=== PATIENT | female | born 1995 | race Caucasian/White ===

== ENCOUNTER 2017-05-19 14:46 | Outpatient (CLI) | payer OTHER | END 2017-05-19 16:57 | disposition home or self-care (01) | LOC: OBT 14:46 → L-D 14:48 → OBT 16:57 | DX: O62.9 Abnormality of forces of labor, unspecified (principal); Z3A.37 37 weeks gestation of pregnancy | CPT/HCPCS: 76818 ==

== ENCOUNTER 2017-05-29 15:03 | Inpatient (IN) | payer OTHER ==
[2017-05-29] MEDS ORDERED: METHYLERGONOVINE 0.2 MG INJ IM (16:00)
[2017-05-29] MEDS ORDERED: CARBOPROST 250 MCG INJ IM (16:00)
[2017-05-29] MEDS ORDERED: OXYTOCIN 30 UNITS/LR 500 ML IV ×2 (16:00)
[2017-05-29] MEDS: AMPICILLIN 2 GM/NS (PMX) 100 ML IV (16:00)
[2017-05-29] MEDS ORDERED: LIDOCAINE 1% (MPF) 30 ML INJ INJ (16:00)
[2017-05-29] MEDS ORDERED: BUTORPHANOL 1 MG INJ IV (16:00)
[2017-05-29] MEDS ORDERED: BUTORPHANOL 2 MG INJ IV (16:00)
[2017-05-29] MEDS ORDERED: IBUPROFEN 600 MG TAB PO (16:00)
[2017-05-29] MEDS ORDERED: MISOPROSTOL 200 MCG TAB PR (16:00)
[2017-05-29] MEDS: LACTATED RINGER'S 1,000 ML IV ×2 (16:35→19:24)
[2017-05-29] MEDS: MISOPROSTOL 25 MCG CAPSULE PO ×3 (16:35→20:44)
[2017-05-29 16:49] LABS: ADD MAN DIFF? NO
[2017-05-29 16:58] LABS: BASOPHILS % 0.4 % (0.0-2.0); EOSINOPHILS # 0.1 10^3/ul (0.0-0.5); EOSINOPHILS % 0.6 % (0.0-7.0); HEMATOCRIT 34.5 % (37.0-47.0); HEMOGLOBIN 11.3 g/dl (12.0-16.0); LYMPHOCYTES # 1.7 10^3/ul (0.8-2.9); LYMPHOCYTES % 17.4 % (15.0-51.0); MEAN CORPUSCULAR HEMOGLOBIN 27.1 pg (29.0-33.0); MEAN CORPUSCULAR HGB CONC 32.8 g/dl (32.0-37.0); MEAN CORPUSCULAR VOLUME 82.7 fl (82.0-101.0); MEAN PLATELET VOLUME 13.5 fl (7.4-10.4); MONOCYTE # 0.7 10^3/ul (0.3-0.9); MONOCYTES % 7.4 % (0.0-11.0); NEUTROPHIL # 7.1 10^3/ul (1.6-7.5); NEUTROPHILS % 72.5 % (39.0-77.0); PLATELET COUNT 192 10^3/UL (140-415); RED BLOOD COUNT 4.17 10^6/ul (4.20-5.40); RED CELL DISTRIBUTION WIDTH 14.9 % (11.5-14.5)
[2017-05-29 16:58] LABS: WHITE BLOOD COUNT 9.7 10^3/ul (4.8-10.8)
[2017-05-29 17:11] LABS: INR 0.86; PROTIME 11.8 Sec (11.9-14.9); PT RATIO 0.9
[2017-05-29 17:12] LABS: PARTIAL THROMBOPLASTIN TIME 28.4 Sec (25.0-35.0)
[2017-05-29 17:38] LABS: HEPATITIS B SURFACE ANTIGEN NEGATIVE (NEGATIVE)
[2017-05-29 20:38] LABS: RAPID PLASMA REAGIN NONREACTIVE (NR)
[2017-05-29] MEDS: AMPICILLIN 1 GM/NS (PMX) 50 ML IV (20:38)
[2017-05-29] MEDS ORDERED: LACTATED RINGER'S 1,000 ML IV (20:47)
[2017-05-29] MEDS ORDERED: OXYCODONE/ACETAMINOPHEN (5/325) TAB PO (21:00)
[2017-05-30] MEDS: AMPICILLIN 1 GM/NS (PMX) 50 ML IV ×6 (00:49→20:59)
[2017-05-30] MEDS: MISOPROSTOL 25 MCG CAPSULE PO ×2 (00:49→21:00)
[2017-05-30] MEDS: LACTATED RINGER'S 1,000 ML IV ×4 (04:10→21:32)
[2017-05-30] MEDS ORDERED: FENTAnyl 2MCG/ML-ROPIV 0.2% 100 ML (11:39)
[2017-05-30] MEDS ORDERED: ONDANSETRON 4 MG INJ IV (13:00)
[2017-05-30] MEDS ORDERED: NALOXONE (0.4 MG/ML) INJ IV (13:00)
[2017-05-30] MEDS ORDERED: DIPHENHYDRAMINE 50 MG INJ IV (13:00)
[2017-05-30] MEDS: OXYTOCIN 30 UNITS/LR 500 ML IV ×2 (14:34→23:17)
[2017-05-30] MEDS: FENTAnyl 2MCG/ML-ROPIV 0.2% 100 ML BAG EPI (19:27)
[2017-05-30 21:01] LABS: AMPHETAMINE/METHAMPHETAMINE Negative (NEGATIVE); BARBITURATES Negative (NEGATIVE); BENZODIAZEPINES Negative (NEGATIVE); CANNABINOIDS Negative (NEGATIVE); COCAINE Negative (NEGATIVE); OPIATES Negative (NEGATIVE)
[2017-05-30] MEDS: MINERAL OIL LIGHT 10 ML VIAL TOP (22:51)
[2017-05-31] MEDS ORDERED: CARBOPROST 250 MCG INJ IM (01:30)
[2017-05-31] MEDS ORDERED: OXYTOCIN 30 UNITS/LR 500 ML IV (01:30)
[2017-05-31] MEDS ORDERED: OXYCODONE/ASPIRIN (4.88/325) TAB PO ×2 (01:30)
[2017-05-31] MEDS ORDERED: METHYLERGONOVINE 0.2 MG INJ IM (01:30)
[2017-05-31] MEDS ORDERED: ZOLPIDEM 5 MG TAB PO (01:30)
[2017-05-31] MEDS ORDERED: BENZOCAINE 20% 56 ML SPRAY TOP (01:30)
[2017-05-31] MEDS ORDERED: MISOPROSTOL 200 MCG TAB PR (01:30)
[2017-05-31] MEDS: LANOLIN 7 GM TUBE TOP (02:04)
[2017-05-31] MEDS: WITCH HAZEL/GLYCERIN PAD PR (02:05)
[2017-05-31] MEDS: IBUPROFEN 600 MG TAB PO ×4 (06:05→23:32)
[2017-05-31 08:08] LABS: ADD MAN DIFF? NO
[2017-05-31 08:20] LABS: ABNORMAL IP MESSAGE 1; BASOPHILS % 0.2 % (0.0-2.0); EOSINOPHILS % 0.2 % (0.0-7.0); HEMATOCRIT 37.4 % (37.0-47.0); HEMOGLOBIN 12.2 g/dl (12.0-16.0); LYMPHOCYTES # 1.6 10^3/ul (0.8-2.9); LYMPHOCYTES % 10.6 % (15.0-51.0); MEAN CORPUSCULAR HEMOGLOBIN 27.1 pg (29.0-33.0); MEAN CORPUSCULAR HGB CONC 32.6 g/dl (32.0-37.0); MEAN CORPUSCULAR VOLUME 82.9 fl (82.0-101.0); MEAN PLATELET VOLUME 13.6 fl (7.4-10.4); MONOCYTE # 1.3 10^3/ul (0.3-0.9); MONOCYTES % 8.6 % (0.0-11.0); NEUTROPHIL # 11.9 10^3/ul (1.6-7.5); NEUTROPHILS % 79.5 % (39.0-77.0); PLATELET COUNT 175 10^3/UL (140-415); RED BLOOD COUNT 4.51 10^6/ul (4.20-5.40); RED CELL DISTRIBUTION WIDTH 15.1 % (11.5-14.5)
[2017-05-31 08:20] LABS: WHITE BLOOD COUNT 14.9 10^3/ul (4.8-10.8)
[2017-05-31 08:28] LABS: POSITIVE DIFF @See below
[2017-05-31] MEDS: SENNA/DOCUSATE NA (8.6MG/50MG) TAB PO ×2 (09:57→20:42)
[2017-06-01] MEDS: IBUPROFEN 600 MG TAB PO ×3 (06:03→17:41)
[2017-06-01] MEDS: SENNA/DOCUSATE NA (8.6MG/50MG) TAB PO (08:59)
[2017-06-01] MEDS: LANOLIN 7 GM TUBE TOP (11:28)
[2017-06-01] MEDS: WITCH HAZEL/GLYCERIN PAD PR (11:28)
[2017-06-01] MEDS: DIPHTH/TET/ACEL PERTUSS (ADULT) 0.5 ML VIAL IM* (12:51)
[2017-06-02] MEDS ORDERED: DIPHTH/TET/ACEL PERTUSS (ADULT) 0.5 ML VIAL IM* (09:00)
== END 2017-06-01 18:21 | disposition home or self-care (01) | DRG 775 ==
LOC: L-D 15:03 → PP1 05-31 00:54
PROVIDERS: Specialist
PROC: 3E033VJ Introduction of Other Hormone into Peripheral Vein, Percutaneous Approach (ICD-10-PCS; 2017-05-29)
PROC: 10E0XZZ Delivery of Products of Conception, External Approach (ICD-10-PCS; principal; 2017-05-30)
PROC: 0UQMXZZ Repair Vulva, External Approach (ICD-10-PCS; 2017-05-30)
DX: O36.5930 Maternal care for other known or suspected poor fetal growth, third trimester, not applicable or unspecified (principal); O99.820 Streptococcus B carrier state complicating pregnancy; O71.82 Other specified trauma to perineum and vulva; Z37.0 Single live birth; Z3A.38 38 weeks gestation of pregnancy
CPT/HCPCS: 62319; 80307; 85025; 85610; 85730; 86592; 86850; 86900; 86901; 87340; 90715; 99464